=== PATIENT | female | born 1995 | race Caucasian/White ===

== ENCOUNTER 2017-03-18 17:57 | Emergency (ER) | payer BC ==
[~2017-03-18] VITALS: Ht 170.2 cm; Wt 63.6 kg
[2017-03-18 18:17] VITALS: BP 158/95; TEMP 98.7
[2017-03-18] MEDS ORDERED: [UNRECOGNIZED DRUG - REMARK] (18:22)
[2017-03-18 21:17] VITALS: PULSE 75
== END 2017-03-18 21:19 | disposition home or self-care (01) ==
LOC: COL.ER 17:57
DX: S81.012A Laceration without foreign body, left knee, initial encounter (principal); S50.312A Abrasion of left elbow, initial encounter; S80.812A Abrasion, left lower leg, initial encounter; W10.9XXA Fall (on) (from) unspecified stairs and steps, initial encounter

== ENCOUNTER → 2017-03-28 | Emergency (ER) | payer BC ==
[~2017-03-28] MED LIST: [UNRECOGNIZED DRUG - REMARK]
== END ==
LOC: COL.ER 17:08
DX: Z48.02 Encounter for removal of sutures (principal)